=== PATIENT | female | born 1980 | race Caucasian/White ===

== ENCOUNTER 2023-01-09 20:50 | Inpatient (IN) | payer OTHER ==
[~2023-01-09] VITALS: Ht 162.6 cm; Wt 119.3 kg
[2023-01-09] MEDS ORDERED: SODIUM CHLORIDE 0.9% 1,000 ML IV ONE ×2 (21:30→23:30)
[2023-01-09] MEDS ORDERED: PIPERACILLIN-TAZO 4.5GM 100 ML IV ONE (21:30)
[2023-01-09 21:58] LABS: Basophils # (auto) 0 10 ^3/uL (0-0.2); Basophils % (auto) 0.2 % (0.0-2.0); Eosinophils # (auto) 0 10 ^3/uL (0-0.8); Eosinophils % (auto) 0.1 % (0.0-7.0); Hematocrit 41.9 % (36.0-46.0); Hemoglobin 14.7 g/dL (12.2-16.2); Lymphocytes # (auto) 1.1 10 ^3/uL (0.4-5.4); Lymphocytes % (auto) 8.6 % (10.0-50.0); Mean Corpuscular Hemoglobin 29.4 pg (28.0-32.0); Mean Corpuscular Volume 83.9 fL (80.0-100.0); Monocytes # (auto) 0.4 10 ^3/uL (0-1.3); Neutrophils # (auto) 11.3 10 ^3/uL (1.6-8.6); Neutrophils % (auto) 88.1 % (37.0-80.0); Nucleated Red Blood Cells % 0.2 %; Red Cell Distribution Width 14.3 % (11.8-14.3); White Blood Cell 12.8 10^3/uL (4.4-10.8)
[2023-01-09] MEDS ORDERED: MORPHINE SULFATE 4 MG/ML SYR/VIAL IV ONE (22:00)
[2023-01-09] MEDS ORDERED: ONDANSETRON HCL 4 MG/2 ML VIAL IV ONE (22:00)
[2023-01-09 22:17] LABS: Albumin 2.5 g/dL (3.4-5.0); Calcium 8.3 mg/dL (8.5-10.1)
[2023-01-09 22:21] LABS: BUN/Creatinine Ratio 12.1 (10.0-20.0); Bilirubin, Total 0.6 mg/dL (0.2-1.0); Total Protein 6.8 g/dL (6.4-8.2)
[2023-01-09 22:22] LABS: Lactic Acid w/Reflex 2.8 mmol/L (0.4-2.0)
[2023-01-10] MEDS: CLINDAMYCIN 300MG IV 50 ML IV SCH ×2 (00:08→06:13)
[2023-01-10] MEDS: HYDROcodone-ACET 5/325MG TAB PO PRN ×4 (00:13→18:42)
[2023-01-10 00:42] LABS: Urine Bacteria MANY /hpf (None Seen); Urine Blood 3+ /uL (Negative); Urine Mucus FEW (None Seen); Urine Specific Gravity 1.029 (1.001-1.035); Urine WBC 6 /hpf (0 - 5)
[2023-01-10] MEDS: SODIUM CHLORIDE 0.9% 1,000 ML IV SCH ×2 (02:47→11:30)
[2023-01-10 06:32] LABS: Potassium 3.5 mmol/L (3.5-5.1)
[2023-01-10 06:48] LABS: Basophils # (auto) 0 10 ^3/uL (0-0.2); Basophils % (auto) 0.2 % (0.0-2.0); Eosinophils # (auto) 0 10 ^3/uL (0-0.8); Hematocrit 38.1 % (36.0-46.0); Hemoglobin 13.1 g/dL (12.2-16.2); Lymphocytes # (auto) 0.9 10 ^3/uL (0.4-5.4); Lymphocytes % (auto) 6.6 % (10.0-50.0); Mean Corpuscular Hemoglobin 29.1 pg (28.0-32.0); Mean Corpuscular Hgb Conc. 34.2 g/dL (32.0-36.0); Monocytes # (auto) 0.4 10 ^3/uL (0-1.3); Monocytes % (auto) 3.3 % (0.0-12.0); Neutrophils # (auto) 12.2 10 ^3/uL (1.6-8.6); Neutrophils % (auto) 89.9 % (37.0-80.0); Red Blood Cells 4.49 10^6/uL (4.0-5.20); Red Cell Distribution Width 13.7 % (11.8-14.3); White Blood Cell 13.6 10^3/uL (4.4-10.8)
[2023-01-10 06:50] LABS: Albumin 1.9 g/dL (3.4-5.0); BUN/Creatinine Ratio 8.7 (10.0-20.0); Bilirubin, Total 0.5 mg/dL (0.2-1.0); Calcium 7.5 mg/dL (8.5-10.1); Total Protein 5.4 g/dL (6.4-8.2)
[2023-01-10 08:50] VITALS: BP 103/50
[2023-01-10 09:02] VITALS: BP 103/50
[2023-01-10] MEDS: cefTRIAXone 1GM/50ML D5W 50 ML IV SCH (09:15)
[2023-01-10] MEDS: PANTOPRAZOLE 40 MG TAB PO SCH (09:15)
[2023-01-10] MEDS: ENOXAPARIN SOD 40 MG/0.4 ML SYRINGE SC SCH (09:16)
[2023-01-10 13:00] VITALS: BP 102/61
[2023-01-10] MEDS ORDERED: VANCOMYCIN 1GM/250ML 250 ML IV ONE (16:00)
[2023-01-10 17:00] VITALS: BP 130/59
[2023-01-10] MEDS ORDERED: VANCOMYCIN PER PHARMACY 0 MG IV SCH (17:30)
[2023-01-10 22:00] VITALS: BP 104/51
[2023-01-11 05:00] VITALS: BP 106/63
[2023-01-11] MEDS: VANCOMYCIN 1GM/250ML 250 ML IV SCH ×2 (05:00→17:26)
[2023-01-11] MEDS: PANTOPRAZOLE 40 MG TAB PO SCH (10:30)
[2023-01-11] MEDS: cefTRIAXone 1GM/50ML D5W 50 ML IV SCH (10:30)
[2023-01-11] MEDS: ENOXAPARIN SOD 40 MG/0.4 ML SYRINGE SC SCH (10:30)
[2023-01-11] MEDS: SODIUM CHLORIDE 0.9% 1,000 ML IV SCH ×2 (10:31→22:49)
[2023-01-11 13:00] VITALS: BP 118/60
[2023-01-11] MEDS: ALBUMIN 25% 50 ML IV SCH ×2 (15:46→23:16)
[2023-01-11 15:55] LABS: Basophils # (auto) 0 10 ^3/uL (0-0.2); Basophils % (auto) 0.2 % (0.0-2.0); Eosinophils # (auto) 0 10 ^3/uL (0-0.8); Hematocrit 36.3 % (36.0-46.0); Hemoglobin 12.2 g/dL (12.2-16.2); Lymphocytes # (auto) 1.4 10 ^3/uL (0.4-5.4); Lymphocytes % (auto) 7.9 % (10.0-50.0); Mean Corpuscular Hemoglobin 28.5 pg (28.0-32.0); Mean Corpuscular Hgb Conc. 33.7 g/dL (32.0-36.0); Mean Corpuscular Volume 84.5 fL (80.0-100.0); Monocytes # (auto) 1.4 10 ^3/uL (0-1.3); Monocytes % (auto) 7.6 % (0.0-12.0); Neutrophils # (auto) 15.3 10 ^3/uL (1.6-8.6); Neutrophils % (auto) 84.3 % (37.0-80.0); Red Blood Cells 4.29 10^6/uL (4.0-5.20); Red Cell Distribution Width 14.6 % (11.8-14.3); White Blood Cell 18.2 10^3/uL (4.4-10.8)
[2023-01-11 16:07] LABS: BUN/Creatinine Ratio 9.6 (10.0-20.0); Calcium 7.8 mg/dL (8.5-10.1); Potassium 3.2 mmol/L (3.5-5.1)
[2023-01-11 17:00] VITALS: BP 102/50
[2023-01-11] MEDS: FUROSEMIDE 40 MG/4 ML VIAL IV SCH (18:28)
[2023-01-11] MEDS: HYDROcodone-ACET 5/325MG TAB PO PRN ×2 (18:28→22:34)
[2023-01-11 22:00] VITALS: BP 106/53
[2023-01-12 04:24] LABS: Basophils # (auto) 0 10 ^3/uL (0-0.2); Basophils % (auto) 0.2 % (0.0-2.0); Eosinophils # (auto) 0 10 ^3/uL (0-0.8); Eosinophils % (auto) 0.2 % (0.0-7.0); Hematocrit 33.5 % (36.0-46.0); Hemoglobin 11.8 g/dL (12.2-16.2); Lymphocytes # (auto) 1.4 10 ^3/uL (0.4-5.4); Lymphocytes % (auto) 9.6 % (10.0-50.0); Mean Corpuscular Hemoglobin 29.6 pg (28.0-32.0); Mean Corpuscular Hgb Conc. 35.1 g/dL (32.0-36.0); Mean Corpuscular Volume 84.3 fL (80.0-100.0); Monocytes # (auto) 1.4 10 ^3/uL (0-1.3); Monocytes % (auto) 9.6 % (0.0-12.0); Neutrophils # (auto) 11.9 10 ^3/uL (1.6-8.6); Neutrophils % (auto) 80.4 % (37.0-80.0); Red Blood Cells 3.98 10^6/uL (4.0-5.20); Red Cell Distribution Width 14.4 % (11.8-14.3); White Blood Cell 14.8 10^3/uL (4.4-10.8)
[2023-01-12 05:00] VITALS: BP 98/56
[2023-01-12] MEDS: VANCOMYCIN 1GM/250ML 250 ML IV SCH (05:22)
[2023-01-12] MEDS: FUROSEMIDE 40 MG/4 ML VIAL IV SCH ×2 (05:32→18:22)
[2023-01-12 08:40] VITALS: BP 108/61
[2023-01-12] MEDS: ALBUMIN 25% 50 ML IV SCH ×3 (09:34→23:30)
[2023-01-12] MEDS: ENOXAPARIN SOD 40 MG/0.4 ML SYRINGE SC SCH (09:34)
[2023-01-12] MEDS: PANTOPRAZOLE 40 MG TAB PO SCH (09:34)
[2023-01-12] MEDS: ONDANSETRON HCL 4 MG/2 ML VIAL IV PRN ×2 (09:42→19:12)
[2023-01-12] MEDS: SODIUM CHLORIDE 0.9% 1,000 ML IV SCH (10:35)
[2023-01-12] MEDS: ACETAMINOPHEN 325 MG TAB PO PRN (10:40)
[2023-01-12] MEDS: cefTRIAXone 1GM/50ML D5W 50 ML IV SCH (10:41)
[2023-01-12 13:00] VITALS: BP 106/53
[2023-01-12 13:56] LABS: Hepatitis C Antibody Negative (Negative)
[2023-01-12] MEDS ORDERED: POTASSIUM CHL 20 Meq TABLET PO ONE (14:45)
[2023-01-12] MEDS ORDERED: DOCUSATE SOD 100 MG CAP PO PRN (14:45)
[2023-01-12] MEDS ORDERED: VANCOMYCIN 1GM/250ML 250 ML IV SCH (15:00)
[2023-01-12] MEDS ORDERED: cefTRIAXone 1GM/50ML D5W 50 ML IV ONE (16:00)
[2023-01-12 17:06] VITALS: BP 129/66
[2023-01-12] MEDS: TEMAZEPAM 15 MG CAP PO PRN (21:26)
[2023-01-12 22:00] VITALS: BP 116/59
[2023-01-13] MEDS: HYDROcodone-ACET 5/325MG TAB PO PRN (02:21)
[2023-01-13 04:54] VITALS: BP 101/56
[2023-01-13] MEDS: FUROSEMIDE 40 MG/4 ML VIAL IV SCH ×2 (06:14→17:51)
[2023-01-13 07:30] VITALS: BP 101/56
[2023-01-13 09:00] VITALS: BP 115/63
[2023-01-13] MEDS: ALBUMIN 25% 50 ML IV SCH (09:00)
[2023-01-13] MEDS: PANTOPRAZOLE 40 MG TAB PO SCH (09:20)
[2023-01-13] MEDS: ENOXAPARIN SOD 40 MG/0.4 ML SYRINGE SC SCH (09:21)
[2023-01-13] MEDS: POTASSIUM CHL 20 Meq TABLET PO SCH (09:21)
[2023-01-13] MEDS: ACETAMINOPHEN 325 MG TAB PO PRN (09:25)
[2023-01-13] MEDS: CEFTRIAXONE SODIUM 2 GM in D5W 5% 100 ML IV SCH (12:56)
[2023-01-13 13:00] VITALS: BP 93/55
[2023-01-13 17:00] VITALS: BP 114/59
[2023-01-13] MEDS: TEMAZEPAM 15 MG CAP PO PRN (20:33)
[2023-01-13 23:04] VITALS: BP 113/52
[2023-01-14 05:00] VITALS: BP 106/59
[2023-01-14] MEDS: FUROSEMIDE 40 MG/4 ML VIAL IV SCH ×2 (06:00→18:00)
[2023-01-14 07:30] VITALS: BP 115/57
[2023-01-14 07:49] LABS: Hematocrit 34.9 % (36.0-46.0); Hemoglobin 11.9 g/dL (12.2-16.2); Mean Corpuscular Hemoglobin 28.9 pg (28.0-32.0); Mean Corpuscular Volume 84.8 fL (80.0-100.0); Red Blood Cells 4.12 10^6/uL (4.0-5.20); Red Cell Distribution Width 14.6 % (11.8-14.3); White Blood Cell 11.9 10^3/uL (4.4-10.8)
[2023-01-14 07:55] LABS: Basophils % (manual) 0 (0.0-2.0); Blast Cells 0; Metamyelocytes % 0; Myelocytes % 0; Reactive Lymphocytes 0
[2023-01-14 08:00] VITALS: BP 103/52
[2023-01-14 08:32] LABS: Band Neutrophils % (manual) 2; Eosinophils % (manual) 1 (0-7); Lymphocytes % (manual) 19 (10.0-50.0); Monocytes % (manual) 12 (0-12); Promyelocytes % 1
[2023-01-14] MEDS: CEFTRIAXONE SODIUM 2 GM in D5W 5% 100 ML IV SCH (10:00)
[2023-01-14] MEDS: ENOXAPARIN SOD 40 MG/0.4 ML SYRINGE SC SCH (10:11)
[2023-01-14] MEDS: PANTOPRAZOLE 40 MG TAB PO SCH (10:11)
[2023-01-14] MEDS: POTASSIUM CHL 20 Meq TABLET PO SCH (10:12)
[2023-01-14 12:00] VITALS: BP 101/54
[2023-01-14 16:00] VITALS: BP 122/64
[2023-01-14] MEDS ORDERED: FURO1TAB31 PO (16:48)
[2023-01-14] MEDS ORDERED: CEPH250C PO (16:48)
[2023-01-14 18:04] VITALS: BP 115/57
== END 2023-01-14 20:40 | disposition home or self-care (01) | DRG 720 ==
LOC: EDBD 20:50 → ER 20:56 → OVERFLOW 23:37 → EAST 01-10 09:11
PROVIDERS: ADMIT Nurse Practitioner; ATTEND Internal Medicine
DX: A40.8 Other streptococcal sepsis (principal); R65.20 Severe sepsis without septic shock; N17.9 Acute kidney failure, unspecified; K59.00 Constipation, unspecified; L03.115 Cellulitis of right lower limb; E66.01 Morbid (severe) obesity due to excess calories; N39.0 Urinary tract infection, site not specified; I89.0 Lymphedema, not elsewhere classified; F17.210 Nicotine dependence, cigarettes, uncomplicated; Z68.42 Body mass index [BMI] 45.0-49.9, adult; Z82.0 Family history of epilepsy and other diseases of the nervous system; Z83.3 Family history of diabetes mellitus
CPT/HCPCS: 36415; 80048; 80053; 80202; 81001; 82565; 83605; 83880; 84484; 85007; 85025; 85027; 86803; 87040; 87077; 87186; 87340; 93971; 96365; 96375; 99291; G0378; J0696; J2405; J2543; J3490; J7060